=== PATIENT | male | born 2000 | race Caucasian/White ===

== ENCOUNTER 2019-08-17 02:22 | Emergency (ER) | payer SELFPAY ==
[2019-08-17] MEDS ORDERED: Diphtheria,Pertussis(Acell),Tetanus Vaccine 0.5 ML Syringe IM ONE (02:56)
[2019-08-17] MEDS ORDERED: FLU Vacc QS2019-20(6MOS+)/PF 60 MCG/0.5 ML SYRINGE IM ONE (03:00)
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
== END 2019-08-17 03:14 ==
LOC: JD.ED 02:22
DX: S61.412A Laceration without foreign body of left hand, initial encounter (principal); S50.12XA Contusion of left forearm, initial encounter; K04.7 Periapical abscess without sinus; F15.10 Other stimulant abuse, uncomplicated; F12.90 Cannabis use, unspecified, uncomplicated; F17.210 Nicotine dependence, cigarettes, uncomplicated; Z23 Encounter for immunization; Y00.XXXA Assault by blunt object, initial encounter; Y93.89 Activity, other specified
CPT/HCPCS: 90471; 90686; 90715; 99283; 99283-25; G0008

== ENCOUNTER 2020-06-23 13:37 | Emergency (ER) | payer MEDICAID ==
--- NOTE | 2020-06-23 14:21 | EDM.PDOC ---
ED HPI GENERAL MEDICAL PROBLEM - General Chief Complaint: Genitourinary Problem Stated Complaint: SORE ON PENIS Time Seen by Provider: 06/23/20 14:04 Source of Information: Reports: Patient, RN Notes Reviewed History Limitations: Reports: No Limitations - History of Present Illness INITIAL COMMENTS - FREE TEXT/NARRATIVE: Patient is a 19-year-old male who presents to the ED for the evaluation of a sore on his penis. He noted this roughly 3 or 4 days ago, he is complaining of some swelling and tenderness in a ringlike fashion around his penis in the area of concern. He states that there is a stinging sensation more than a burning sensation. The sore is open and does seem to ooze, and he states this is kind of a yellowish fluid. He has been using peroxide to the wound and nothing seems to be really helping much. He is not having any dysuria, frequency or urgency issues. He is having unprotected sex with one female partner. He is not too concerned about STDs at this time. He was concerned more about the swelling and the draining lesion. The lesion itself is roughly 3 mm round with surrounding erythema and open center that is draining a serous/yellow type fluid. He notes that he did in fact inject methamphetamine to the right side of his penis 3 to 4 months ago, and he had some skin issues at that time but everything subsequently got better. He was not seen for medical evaluation due to that. He is not using any medications at home for the swelling other than the peroxide to the lesion. Patient denies any other sick-like symptoms, fever/chills, c ough/shortness of breath, nausea/vomiting/diarrhea. He notes there is no testicular swelling or issues with the testicles present at today's visit. Treatments DESIGN RELEASE ENGINEER: Reports: Other (see below) Other Treatments DESIGN RELEASE ENGINEER: peroxide Penis Pain Score (Numeric/FACES): 6 - Related Data Allergies Allergy/AdvReac Type Severity Reaction Status Date / Time No Known Allergies Allergy Verified 08/17/19 02:28 Home Meds: Home Meds Doxycycline [Vibramycin] 100 mg PO BID 10 Days #20 tab 06/23/20 [Rx] Past Medical History Psychiatric History: Reports: ADHD Social & Family History - Tobacco Use Tobacco Use Status *Q: Current Every Day Tobacco User Years of Tobacco use: 11 Packs/Tins Daily: 0.4 - Caffeine Use Caffeine Use: Reports: Coffee, Energy Drinks, Soda, Tea - Recreational Drug Use Recreational Drug Use: Yes Recreational Drug Type: Reports: Amphetamines (Speed) Recreational Drug Route: Reports: Intravenous (injected into right side of penis roughly 4-5 months ago.) - Sexual History Sexual History: Reports: Sexually Active, Single Partner - Living Situation & Occupation Living situation: Reports: Single, Other (with friends) Occupation: Unemployed ED ROS GENERAL - Review of Systems Review Of Systems: Comprehensive ROS is negative, except as noted in HPI. ED EXAM, RENAL/ - Physical Exam Exam: See Below Exam Limited By: No Limitations General Appearance: Alert, WD/WN, No Apparent Distress Respiratory/Chest: No Respiratory Distress, Lungs Clear, Normal Breath Sounds, No Accessory Muscle Use, Chest Non-Tender Cardiovascular: Normal Peripheral Pulses, Regular Rate, Rhythm, No Murmur (Male) Exam: No Hernia, Circumcised, Penile Lesions (3mm round lesion to underside of penile shaft. The area in middle is open and draining a serous type fluid, mild tenderness to the area. penile tenderness/swelling in a ring like fashion at the level of the lesion.). No: Testicular Tenderness (L), Testicular Tenderness (R), Urethral Discharge Rectal (Males) Exam: Deferred Neurological: Alert, Oriented, Normal Cognition, No Motor/Sensory Deficits Psychiatric: Normal Affect, Normal Mood Skin Exam: Warm, Dry, Intact, Normal Color, No Rash Course - Vital Signs Last Recorded V/S: Last Vital Signs Temp 97.7 F 06/23/20 13:52 Pulse 75 06/23/20 13:52 Resp 20 06/23/20 13:52 BP 123/73 06/23/20 13:52 Pulse Ox 98 06/23/20 13:52 - Orders/Labs/Meds Orders: Active Orders 24 hr Category Date Time Status RAPID PLASMA REAGIN,RPR [CHEM] Stat Lab 06/23/20 14:14 Ordered Labs: Laboratory Tests 06/23/20 Range/Units 14:30 C trachomatis DNA (PCR) Not detected N gonorrhoeae DNA (PCR) Not detected - Re-Assessments/Exams Free Text/Narrative Re-Assessment/Exam: 06/23/20 14:21 Patient presents to the ED for the evaluation of his penile lesion. Will have him give us dirty urine to be tested for gonorrhea/chlamydia, and we will get a syphilis test to further rule this out. He will likely be started on oral antibiotics, doxycycline 100 mg BID x 10 days, and have him follow up in clinic to make sure that the lesion is healing as expected. 06/23/20 16:57 Gonorrhea chlamydia screen were negative. Apparently the RPR for syphilis is a batch testing will likely be done tomorrow. Patient will have to be called with his results. Again he will be started on oral antibiotics for coverage. Departure - Departure Time of Disposition: 16:58 Disposition: Home, Self-Care 01 Condition: Good Clinical Impression: Penile lesion - Discharge Information *PRESCRIPTION DRUG MONITORING PROGRAM REVIEWED*: No *COPY OF PRESCRIPTION DRUG MONITORING REPORT IN PATIENT MARKIE: No Prescriptions: Doxycycline [Vibramycin] 100 mg PO BID 10 Days #20 tab Instructions: Antibiotic Medicine, Adult, [id number] Referrals: PCP,None [Primary Care Provider] - Forms: ED Department Discharge Additional Instructions: You were evaluated in the ER today for your penile lesion. Your gonorrhea chlamydia screen was negative at today's visit, the test we did for syphilis will not be run until tomorrow, you will be called and made notified if you have positive results. Nonetheless you have been started on an antibiotic, doxycycline 1 tablet 2 times a day for the next 10 days for further coverage. I would recommend that you follow-up with a primary care provider, sometime by the end of this week or early next week to make sure that the lesion is in fact getting better and not worsening. Antibiotics can take up to 72 hours to start taking effect. You may try to ice the area to provide further relief from swelling, and use some ibuprofen, every 6 hours as needed for further swelling/pain relief. Please return to the ER at any time if symptoms change or worsen. Sepsis Event Note (ED) - Evaluation Sepsis Screening Result: No Definite Risk - Focused Exam Vital Signs: Vital Signs Temp Pulse Resp BP Pulse Ox 06/23/20 13:52 97.7 F 75 20 123/73 98 - My Orders Last 24 Hours: My Active Orders 06/23/20 14:14 RAPID PLASMA REAGIN,RPR [CHEM] Stat - Assessment/Plan Last 24 Hours: My Active Orders 06/23/20 14:14 RAPID PLASMA REAGIN,RPR [CHEM] Stat
[2020-06-23 16:50] LABS: C. TRACHOMATIS BY PCR NOT DETECTED; N. GONORRHOEAE BY PCR NOT DETECTED
== END 2020-06-23 17:11 | disposition home or self-care (01) ==
LOC: JD.ED 13:37
DX: L98.9 Disorder of the skin and subcutaneous tissue, unspecified (principal); F17.210 Nicotine dependence, cigarettes, uncomplicated
CPT/HCPCS: 36415; 86592; 87491; 87591; 99283